=== PATIENT | female | born 1965 | race Caucasian/White ===

== ENCOUNTER → 2016-12-30 | Outpatient (REF) ==
[~2016-12-30] MED LIST: AMIT50TA2; ANEXSIA; BABY81CH; CYCLOBENZAPRINE; SYNT75TA
--- NOTE | 2016-12-30 21:52 | REP ---
Clinical: Pain and disability. Technique: AP, lateral, coned-down views of the lumbosacral spine. Findings: Alignment and lordosis maintained. No acute fracture / compression injury or subluxation. Advanced degenerative disc osteophyte complex at the L5-S1 level includes anterior and posterior osteophytosis, endplate sclerosis, disc space narrowing and hypertrophic facet changes. Moderate to early advanced degenerative changes noted throughout the remainder of the visualized thoracolumbar spine with marginal osteophytes endplate sclerosis and minimal disc space narrowing. Impression: Diffuse moderate to advanced multilevel degenerative changes. Signed by Akbar Cabrera MD 12/30/2016 09:43 P
--- NOTE | 2016-12-30 21:56 | REP ---
Clinical: Pain and disability. Technique: AP, lateral, and swimmer's view of the cervical spine. Findings: Reversal of normal lordosis and advanced degenerative changes are appreciated at the C4-5 C5-6 and C6-7 levels including osteophytosis, endplate sclerosis, and disc space narrowing as well as posterior osteophytes which may narrow the adjacent canal and subtle compression deformity at C5 which appears chronic. Impression: Advanced degenerative changes and evidence for old injuries are suggested. Examination is limited by technique and overlying soft tissue structures. If the patient remains symptomatic consider MRI for further investigation. Signed by Akbar Cabrera MD 12/30/2016 09:47 P
== END ==
LOC: M SMT 11:06
PROVIDERS: ATTEND Internal Medicine
DX: M50.30 Other cervical disc degeneration, unspecified cervical region (principal); M51.36 Other intervertebral disc degeneration, lumbar region; M51.37 Other intervertebral disc degeneration, lumbosacral region

== ENCOUNTER → 2018-10-12 | Outpatient (REF) ==
--- NOTE | 2018-10-13 07:04 | REP ---
LIMITED THREE VIEWS OF THE CERVICAL SPINE, DISABILITY DETERMINATION: COMPARISON EXAMINATION: 12/30/2016. There are chronic changes involving the cervical spine with bridging anterior osteophyte formation seen at the C5-6 and C6-7 level status quo. There is disc space narrowing which is unchanged. Vertebral body height and alignment is unchanged. The facet joints are again seen to be well aligned bilaterally. IMPRESSION:Limited examination with chronic changes which were stable as descried above. Electronically Signed by Vargas Laird DO 10/13/2018 11:56 A
--- NOTE | 2018-10-13 07:33 | REP ---
REASON: Disability. COMPARISON: 12/30/2016. AP and lateral views. There is no change from the prior exam. Vertebral body height and alignment is stable. There is disc space narrowing particularly at L5-S1 status quo with posterior disc space narrowing at all other levels status quo. Since the last examination a minimal grade 1 L4 upon L5 spondylolisthesis has developed likely secondary to degenerative facet joint changes. I can not accurately assess the pars since no oblique views were obtained. IMPRESSION:Chronic changes as described above. Electronically Signed by Vargas Laird DO 10/13/2018 11:57 A
== END ==
LOC: M SMT 15:03
PROVIDERS: ATTEND Internal Medicine
DX: M25.78 Osteophyte, vertebrae (principal); M50.322 Other cervical disc degeneration at C5-C6 level; M50.323 Other cervical disc degeneration at C6-C7 level; M51.37 Other intervertebral disc degeneration, lumbosacral region; M51.36 Other intervertebral disc degeneration, lumbar region

== ENCOUNTER → 2019-07-04 | Outpatient (REF) | payer OTHER | LOC: M LAB LCGH 12:04 | PROVIDERS: ATTEND Obstetrics & Gynecology | DX: Z12.4 Encounter for screening for malignant neoplasm of cervix (principal); R87.619 Unspecified abnormal cytological findings in specimens from cervix uteri; C55 Malignant neoplasm of uterus, part unspecified ==

== ENCOUNTER 2020-12-05 10:24 | Emergency (ER) | payer MEDICARE, OTHER ==
[2020-12-05 12:00] LABS: HEMATOCRIT 44.6 % (36.0-47.0); HEMOGLOBIN 14.4 g/dl (12.0-15.5); MEAN CORPUSCULAR HEMOGLOBIN 29.4 pg (27.0-33.0); MEAN CORPUSCULAR HGB CONC 32.3 g/dl (32.0-36.5); PLATELET COUNT, AUTOMATED 178 10^3/uL (150-450); WHITE BLOOD COUNT 5.5 10^3/uL (4.0-10.0)
[2020-12-05 12:21] LABS: AMPHETAMINES LEVEL URINE NEGATIVE (NEGATIVE); BARBITURATES URINE NEGATIVE (NEGATIVE); BENZODIAZEPINES URINE NEGATIVE (NEGATIVE); CANNABINOIDS URINE NEGATIVE (NEGATIVE); COCAINE METABOLITE URINE NEGATIVE (NEGATIVE); METHADONE URINE NEGATIVE (NEGATIVE); OPIATES URINE NEGATIVE (NEGATIVE); PHENCYCLIDINE URINE NEGATIVE (NEGATIVE)
[2020-12-05 12:46] LABS: ACETAMINOPHEN LEVEL < 2.0 UG/ML (10.0-30.0); ALBUMIN 3.7 GM/DL (3.2-5.2); ALT/SGPT 27 U/L (12-78); BILIRUBIN,DIRECT 0.2 MG/DL (0.0-0.2); BILIRUBIN,TOTAL 0.5 MG/DL (0.2-1.0); BLOOD UREA NITROGEN 9 MG/DL (7-18); CALCIUM LEVEL 8.9 MG/DL (8.5-10.1); CARBON DIOXIDE LEVEL 30 MEQ/L (21-32); CHLORIDE LEVEL 107 MEQ/L (98-107); CREATININE FOR GFR 0.92 MG/DL (0.55-1.30); ETHYL ALCOHOL (ETHANOL) < 0.003 % (0.000-0.010); GLOMERULAR FILTRATION RATE > 60.0 (>51); GLUCOSE, FASTING 101 MG/DL (70-100); POTASSIUM SERUM 3.7 MEQ/L (3.5-5.1); SALICYLATE LEVEL < 1.7 MG/DL (5.0-30.0); SODIUM LEVEL 142 MEQ/L (136-145); TOTAL PROTEIN 6.7 GM/DL (6.4-8.2)
[2020-12-05] MEDS ORDERED: ISOVUE-370 76% 100ML VIAL As Ordered ONE (13:39)
--- NOTE | 2020-12-05 14:18 | REP ---
INDICATION: LLQ pain COMPARISON: None. TECHNIQUE: CT Scan of the abdomen and pelvis was performed with intravenous administration of 100 cc of Isovue 370, without oral contrast. Sagittal and coronal reconstruction images are performed. FINDINGS: Lung bases: Unremarkable. Liver: There is a subcentimeter focus of fat in the superior right lobe of the liver. Gallbladder: Prior cholecystectomy. Spleen: Normal. Adrenals: Normal. Pancreas: Normal. Kidneys: Normal. Small and large bowel: Unremarkable. Free fluid: None. Abdominal aorta: No aneurysm or dissection. Adenopathy: None. Appendix: Not inflamed. Osseous structures: There are degenerative changes of the spine without compression deformity. Pelvis: No mass. Prior hysterectomy. IMPRESSION: No acute abnormalities identified in the abdomen and pelvis. <Electronically signed by Sam Don > 12/05/20 [id number]
[2020-12-05] MEDS ORDERED: ACETAMINOPHEN 500 MG TAB PO ONE (14:25)
[2020-12-05 15:01] VITALS: BP 154/82
== END 2020-12-05 15:01 | disposition home or self-care (01) ==
LOC: M ED 10:24
DX: F43.20 Adjustment disorder, unspecified (principal); E07.9 Disorder of thyroid, unspecified; Z79.899 Other long term (current) drug therapy; Z79.890 Hormone replacement therapy; Z79.82 Long term (current) use of aspirin; Z88.8 Allergy status to other drugs, medicaments and biological substances; F17.210 Nicotine dependence, cigarettes, uncomplicated
CPT/HCPCS: 36415; 74177; 80048; 80076; 80143; 80307; 82077; 84443; 85027; 99284; Q9967; U0003

== ENCOUNTER → 2024-01-28 | Outpatient (CLI) | payer MEDICARE, MEDICAID | LOC: M SLEEP 07:44 | PROVIDERS: ATTEND Family Medicine | DX: R56.9 Unspecified convulsions (principal) ==